=== PATIENT | male | born 1960 | race Caucasian/White ===

== ENCOUNTER → 2017-03-27 | Outpatient (CLI) | payer OTHER ==
--- NOTE | 2017-03-28 11:15 | REP ---
PET/CT: HISTORY: Solitary pulmonary nodule. COMPARISONS: No comparison images are available. Report of a prior [facility] chest CT study dated March 21, 2017 shows a 10 mm right middle lobe pulmonary nodule. TECHNIQUE: 52 minutes following the intravenous injection of a 9.2 mCi dose of F-18 FDG, three-dimensional PET scintigraphy is acquired from the skull base to the proximal thighs. Triplanar noncontrast CT scanning is acquired through the same anatomic range for attenuation correction, and image registration with scan parameters optimized to minimize radiation exposure to the patient. PET scintigraphy and CT datasets were fused and displayed on a workstation with multiplanar and projection display capability. PET/CT FINDINGS: There is no discernible FDG accumulation in the right middle lobe nodule. Maximum standard uptake value is 1.07. This nodule is not hypermetabolic. No other abnormal hypermetabolic uptake is seen in the chest. Head and neck soft tissues are unremarkable. In the abdomen and pelvis, normal hepatic, splenic, gastrointestinal, and genitourinary FDG accumulation is seen. No other abnormal hypermetabolic uptake is appreciated. IMPRESSION: Negative PET scintigraphy. 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 Signed by Segun Farfan MD 03/28/2017 11:25 A
== END ==
LOC: M PLARAD 10:21
PROVIDERS: ATTEND Family Medicine
DX: R91.1 Solitary pulmonary nodule (principal); F17.210 Nicotine dependence, cigarettes, uncomplicated
CPT/HCPCS: 78815; A9552

== ENCOUNTER → 2018-11-10 | Outpatient (REF) | payer OTHER ==
[2018-11-10 19:10] LABS: FERRITIN 27 NG/ML (26-388); IRON (FE) 71 UG/DL (65-175); PERCENT SATURATION 20.5 % (19.7-50.0); TOTAL IRON BINDING CAPACITY 347 UG/DL (250-450)
[2018-11-10 19:21] LABS: VITAMIN B12 LEVEL 1338 PG/ML
[2018-11-10 19:37] LABS: FOLATE > 24.0 NG/ML
== END ==
LOC: M LAB REF 17:12
PROVIDERS: ATTEND Internal Medicine Nephrology
DX: D64.9 Anemia, unspecified (principal)

== ENCOUNTER → 2019-02-10 | Outpatient (REF) | payer OTHER ==
[2019-02-10 19:23] LABS: TOTAL PROTEIN 7.4 GM/DL (6.4-8.2)
[2019-02-10 19:59] LABS: URINE TOTAL PROTEIN 45.5 MG/DL (0-12)
[2019-02-12 12:40] LABS: ALBUMIN 4.32 GM/DL (3.29-5.55); ALBUMIN % 58.4 % (55.8-66.1); ALPHA-1-GLOBULIN % 3.4 % (2.9-4.9); ALPHA-1-GLOBULINS 0.25 GM/DL (0.17-0.41); ALPHA-2-GLOBULINS 0.92 GM/DL (0.42-0.99); ALPHA-2-GLOBULINS % 12.4 % (7.1-11.8); BETA-1-GLOBULINS 0.41 GM/DL (0.28-0.60); BETA-1-GLOBULINS % 5.6 % (4.7-7.2); BETA-2-GLOBULINS 0.41 GM/DL (0.19-0.55); BETA-2-GLOBULINS % 5.6 % (3.2-6.5); GAMMA GLOBULIN % 14.6 % (11.1-18.8); GAMMA GLOBULINS 1.08 GM/DL (0.65-1.58)
[2019-02-12 12:48] LABS: UPEP INTERPRETATION NO M-SPIKE NOTED; URINE VOLUME RANDOM ML
[2019-02-14 00:06] LABS: ANCA-ATYPICAL <1:20 titer (Neg:<1:20); ANTINUCLEAR ANTIBODIES DIRECT Negative (Negative); CYTOPLASMIC NEUTROP AB ANCA-C <1:20 titer (Neg:<1:20); FREE KAPPA LIGHT CHAINS SERUM 45.1 mg/L (3.3-19.4); FREE LAMBDA LIGHT CHAINS SERUM 22.4 mg/L (5.7-26.3); KAPPA/LAMBDA RATIO SERUM 2.01 (0.26-1.65); PERINUCLEAR AB ANCA-P <1:20 titer (Neg:<1:20)
== END ==
LOC: M LAB REF 17:15
PROVIDERS: ATTEND Internal Medicine Nephrology
DX: R80.9 Proteinuria, unspecified (principal)

== ENCOUNTER → 2019-06-12 | Outpatient (CLI) | payer OTHER ==
--- NOTE | 2019-06-12 07:54 | REPVR ---
PROCEDURE INFORMATION: Exam: CT Maxillofacial Without Contrast, Sinus Exam date and time: 06/12/2019 7:41 AM Age: 59 years old Clinical indication: Sinusitis; Type not specified; Additional info: Epistaxis TECHNIQUE: Imaging protocol: CT Maxillofacial without contrast. Focus on the sinuses. Radiation optimization: All CT scans at this facility use at least one of these dose optimization techniques: automated exposure control; mA and/or kV adjustment per patient size (includes targeted exams where dose is matched to clinical indication); or iterative reconstruction. COMPARISON: No relevant prior studies available. FINDINGS: Frontal sinuses: Mild mucosal thickening of the right sphenoid sinus and bilateral frontal sinuses. Ethmoid air cells: See Maxillary Sinuses Finding. Sphenoid sinuses: Normal. No air-fluid levels. Maxillary sinuses: Near complete opacification of bilateral maxillary sinuses. Moderate opacification of the ethmoidal air cells, right greater than left. Orbits: Orbits are normal. Globes are unremarkable. Nasal cavity/Septum: Unremarkable. Soft tissues: Unremarkable. Bones/joints: Unremarkable. IMPRESSION: Mild opacification of the visualized sinuses representing sinus disease. Electronically signed by: Lashon Chu On 06/12/2019 07:54:24 AM
== END ==
LOC: M RAD 07:24
PROVIDERS: ATTEND Physician Assistant Medical
DX: R04.0 Epistaxis (principal)

== ENCOUNTER → 2019-10-26 | Outpatient (CLI) | payer OTHER ==
[~2019-10-26] MED LIST: ATOR80TA59 PO; BUPR150T3 PO; BYDU1INJ SC; CLOP75TA2 PO; INSUHUMDS SC; LANTINJ4 SC; LISI-538 PO; NICOTINE; REME15TA2 PO
== END ==
LOC: M LABSMTC 09:42
PROVIDERS: ATTEND Anesthesiology
DX: Z03.818 Encounter for observation for suspected exposure to other biological agents ruled out (principal); Z11.59 Encounter for screening for other viral diseases
CPT/HCPCS: C9803; U0003

== ENCOUNTER → 2019-10-29 | Day surgery (SDC) | payer OTHER ==
[~2019-10-29] VITALS: Ht 180.3 cm; Wt 104.3 kg
[~2019-10-29] MED LIST changes: +BACITRACIN OINTMENT 30GM TUBE As Ordered ONE; +EPINEPHrine 1MG/ML INJ 30ML MD-VIAL As Ordered ONE; +LIDOCAINE 1% MDV 20ML VIAL SQ PRN; +LIDOCAINE 2% 100MG/5ML SDV (FOR ANES.) As Ordered ONE; +LR 1,000 ML IV ONE; +METHYLENE BLUE 0.5% (5MG/ML) 10 ML AMP (PROVAYBLUE) As Ordered ONE; +MIDAZOLAM INJ 2MG/2ML VIAL (J2250 PER 1MG) As Ordered ONE; +ONDANSETRON 4MG/2ML VIAL As Ordered ONE; +SILVER NITRATE APPLICATOR As Ordered ONE; +dexameTHASONE 4 MG/ML 1ML VIAL (J1100 PER 1MG) As Ordered ONE; +dexameTHASONE 4 MG/ML 1ML VIAL (J1100 PER 1MG) IV ONE; +fentaNYL 100 MCG/2 ML INJECTION (J3010) As Ordered ONE; +propofoL 200 MG/20 ML VIAL As Ordered ONE
[2019-10-29 06:32] VITALS: BP 144/77
== END | disposition home or self-care (01) ==
LOC: M SDC 06:11
PROVIDERS: ATTEND Otolaryngology
DX: R04.0 Epistaxis (principal); Z53.09 Procedure and treatment not carried out because of other contraindication; Z79.02 Long term (current) use of antithrombotics/antiplatelets
CPT/HCPCS: J2250; J3010

== ENCOUNTER → 2020-02-26 | Outpatient (CLI) | payer OTHER ==
[~2020-02-26] MED LIST changes: -BACITRACIN OINTMENT 30GM TUBE As Ordered ONE; -EPINEPHrine 1MG/ML INJ 30ML MD-VIAL As Ordered ONE; -LIDOCAINE 1% MDV 20ML VIAL SQ PRN; -LIDOCAINE 2% 100MG/5ML SDV (FOR ANES.) As Ordered ONE; -LR 1,000 ML IV ONE; -METHYLENE BLUE 0.5% (5MG/ML) 10 ML AMP (PROVAYBLUE) As Ordered ONE; -MIDAZOLAM INJ 2MG/2ML VIAL (J2250 PER 1MG) As Ordered ONE; +MULT-40 PO; -ONDANSETRON 4MG/2ML VIAL As Ordered ONE; -SILVER NITRATE APPLICATOR As Ordered ONE; -dexameTHASONE 4 MG/ML 1ML VIAL (J1100 PER 1MG) As Ordered ONE; -dexameTHASONE 4 MG/ML 1ML VIAL (J1100 PER 1MG) IV ONE; -fentaNYL 100 MCG/2 ML INJECTION (J3010) As Ordered ONE; -propofoL 200 MG/20 ML VIAL As Ordered ONE
== END ==
LOC: M LABSMTC 12:09
PROVIDERS: ATTEND Anesthesiology
DX: Z01.812 Encounter for preprocedural laboratory examination (principal); Z20.828 Contact with and (suspected) exposure to other viral communicable diseases
CPT/HCPCS: C9803; U0003

== ENCOUNTER 2020-03-02 11:53 | Day surgery (SDC) | payer OTHER ==
[~2020-03-02] VITALS: Ht 180.3 cm; Wt 106.3 kg
[~2020-03-02 11:53] MED LIST changes: +LR 1,000 ML IV ONE
[2020-03-02] MEDS ORDERED: SUGAMMADEX SODIUM 500 MG/5 ML VIAL (BRIDION) As Ordered ONE (13:47)
[2020-03-02] MEDS ORDERED: fentaNYL 100 MCG/2 ML INJECTION (J3010) As Ordered ONE ×2 (13:47→17:14)
[2020-03-02] MEDS ORDERED: MIDAZOLAM INJ 2MG/2ML VIAL (J2250 PER 1MG) As Ordered ONE (13:47)
[2020-03-02] MEDS ORDERED: ROCURONIUM BROMIDE 50 MG/5 ML VIAL As Ordered ONE (13:47)
[2020-03-02] MEDS ORDERED: dexameTHASONE 4 MG/ML 1ML VIAL (J1100 PER 1MG) As Ordered ONE (13:47)
[2020-03-02] MEDS ORDERED: METOCLOPRAMIDE INJ 10MG/2ML VIAL (J2765 PER 1) As Ordered ONE (13:47)
[2020-03-02] MEDS ORDERED: propofoL 200 MG/20 ML VIAL As Ordered ONE (13:47)
[2020-03-02] MEDS ORDERED: ONDANSETRON 4MG/2ML VIAL As Ordered ONE (13:47)
[2020-03-02] MEDS ORDERED: LIDOCAINE 2% 100MG/5ML SDV (FOR ANES.) As Ordered ONE (13:47)
[2020-03-02] MEDS: BACITRACIN OINTMENT 30GM TUBE As Ordered ONE ×2 (14:36→16:51)
[2020-03-02] MEDS ORDERED: EPINEPHrine 1MG/ML INJ 30ML MD-VIAL As Ordered ONE ×2 (15:03→16:17)
[2020-03-02] MEDS ORDERED: SILVER NITRATE APPLICATOR As Ordered ONE (15:35)
[2020-03-02] MEDS ORDERED: LIDOCAINE W/EPINEPHRINE 1% 20ML VIAL As Ordered ONE (15:39)
[2020-03-02] MEDS ORDERED: oxyCODONE 5MG TAB As Ordered ONE (17:14)
[2020-03-02] MEDS: oxyCODONE 5MG TAB PO PRN ×2 (17:25→18:14)
[2020-03-02] MEDS ORDERED: ONDANSETRON 4MG/2ML VIAL IV PRN (17:30)
[2020-03-02] MEDS ORDERED: fentaNYL 100 MCG/2 ML INJECTION (J3010) IV PRN (17:30)
[2020-03-02] MEDS ORDERED: LR 1,000 ML IV SCH ×2 (17:30)
[2020-03-02] MEDS ORDERED: hydrALAZINE 20MG/ML 1ML VIAL (J0360 PER 20MG) As Ordered ONE (17:36)
[2020-03-02] MEDS: hydrALAZINE 20MG/ML 1ML VIAL (J0360 PER 20MG) IV SCH ×4 (17:40→17:55)
[2020-03-02 18:13] VITALS: BP 182/93
[2020-03-02] MEDS ORDERED: lisinopriL 10 MG TAB PO ONE (18:15)
[2020-03-02 18:50] VITALS: BP 177/81
--- NOTE | 2020-05-03 14:20 | RO ---
OPERATIVE NOTE DATE OF OPERATION: 03/02/2020 PREOPERATIVE DIAGNOSIS: Recurrent right epistaxis, nasal polyposis. POSTOPERATIVE DIAGNOSIS: Recurrent right epistaxis, nasal polyposis. PROCEDURE: Nasal endoscopy, control of right epistaxis and biopsy of the right nasal cavity. SURGEON: Saturnino Dan MD SECRETARY OF POLICE: ANESTHESIA: General. CLINICAL PREAMBLE: This 60-year-old man presented to the office with history of recurrent right epistaxis. The right nasal cavity has received multiple cauterizations in the office with no long-term resolution. Management options including surgery risks have been discussed with the patient. He understood and consented to the procedure. DESCRIPTION OF PROCEDURE: Patient was identified in preop holding and brought to the operating room in stable condition. He was positioned on the operating table, the patient received general anesthesia followed by orotracheal intubation without incident. Patient was prepped and draped in the usual fashion for the procedure. Both sides of the nasal cavity were packed using pledgets soaked in a vasoconstrictor. After a waiting period, the pledgets were removed. A nasal endoscope was used to inspect both sides of the nasal cavity. Deviation of the right nasal septum was visualized. The bleeding site was noted on the right mid and anterior nasal septum. This was then cauterized under direct visualization. The sphenopalatine fossa was inspected in both the right and left side of the nasal cavity. There was no evidence of mucosal mass lesion or ulceration. Polypoid tissue was noted to be emanating from the right ostiomeatal complex area. Biopsies were obtained to be sent for permanent section to rule out neoplastic process. No active bleeding was noted in the right ostiomeatal complex area. At this time, the nasal portal was applied to the right nasal cavity to achieve complete hemostasis. At the end of the procedure, sponge and instrument counts were correct. No complication was encountered. Estimated blood loss was less than 10 mL. General anesthesia was reversed, and the patient was extubated and brought to the recovery room in stable condition.
== END 2020-03-02 18:50 | disposition home or self-care (01) ==
LOC: M SDC 11:53
PROVIDERS: ATTEND Otolaryngology
DX: R04.0 Epistaxis (principal); I10 Essential (primary) hypertension; E10.9 Type 1 diabetes mellitus without complications; Z79.4 Long term (current) use of insulin; Z79.899 Other long term (current) drug therapy; Z88.0 Allergy status to penicillin; Z91.013 Allergy to seafood
CPT/HCPCS: 31238; 88305; J0360; J1100; J2250; J2405; J2765; J3010

== ENCOUNTER → 2020-04-18 | Outpatient (REF) | payer OTHER ==
[~2020-04-18] MED LIST changes: -LR 1,000 ML IV ONE
[2020-04-18 18:24] LABS: PERCENT SATURATION 21.6 % (19.7-50.0)
[2020-04-18 18:30] LABS: FOLATE 16.5 NG/ML
== END ==
LOC: M LAB REF 17:14
PROVIDERS: ATTEND Internal Medicine Nephrology
DX: D50.9 Iron deficiency anemia, unspecified (principal)

== ENCOUNTER → 2020-05-23 | Outpatient (CLI) | payer OTHER ==
[~2020-05-23] MED LIST changes: -BUPR150T3 PO; +BUPR150T4 PO
--- NOTE | 2020-05-23 16:15 | REPVR ---
PROCEDURE INFORMATION: Exam: CT Maxillofacial Without Contrast, Sinus Exam date and time: 05/23/2020 4:04 PM Age: 60 years old Clinical indication: Condition or disease; Other: Nasal polyposis; Additional info: Nasal polyposis, with brain lab TECHNIQUE: Imaging protocol: CT Maxillofacial without contrast. Focus on the sinuses. Radiation optimization: All CT scans at this facility use at least one of these dose optimization techniques: automated exposure control; mA and/or kV adjustment per patient size (includes targeted exams where dose is matched to clinical indication); or iterative reconstruction. COMPARISON: CT Maxilofacial w/out contrast 06/12/2019 7:49 AM FINDINGS: Frontal sinuses: Mild mucosal thickening inferior right frontal sinus, with probable 9 mm cyst/polyp. Patent left frontal recess, mucosal occlusion of the right frontal recess. Ethmoid air cells: Extensive right anterior ethmoid air cell mucosal thickening and partial air cell opacification. Sphenoid sinuses: Minimal bilateral anterior sphenoid sinus mucosal thickening, patent bilateral sphenoid ostia. Maxillary sinuses: Mild inferior and superomedial right maxillary sinus mucosal thickening. Minimal inferior-anterior left maxillary sinus mucosal thickening. Mucosal narrowing left maxillary ostiomeatal complex. Patent right maxillary sinus ostiomeatal complex. Nasal cavity/Septum: Unremarkable. Orbital cavity: Orbits are normal. Globes are unremarkable. Bones/joints: No destructive bony process identified. Soft tissues: Unremarkable. IMPRESSION: Improved bilateral maxillary sinus mucosal disease, stable bilateral sphenoid sinus mucosal disease, increased right anterior ethmoid disease, interval right frontal sinus mucosal disease. Electronically signed by: Tiago Giron On 05/23/2020 16:15:44 PM
== END ==
LOC: M RAD 15:55
PROVIDERS: ATTEND Otolaryngology
DX: J33.9 Nasal polyp, unspecified (principal)

== ENCOUNTER → 2020-09-14 | Outpatient (REF) | payer OTHER ==
[~2020-09-14] MED LIST changes: +BUPR150T12 PO; -BUPR150T4 PO; -LISI-538 PO; +LISI20TA33 PO
[2020-09-14 18:38] LABS: PERCENT SATURATION 16.8 % (19.7-50.0)
== END ==
LOC: M LAB REF 17:04
PROVIDERS: ATTEND Internal Medicine Nephrology
DX: D50.9 Iron deficiency anemia, unspecified (principal)

== ENCOUNTER 2020-10-27 07:20 | Outpatient (CLI) | payer OTHER ==
[~2020-10-27] VITALS: Ht 180.3 cm; Wt 107.2 kg
[~2020-10-27 07:20] MED LIST changes: +ALBUTEROL SULFATE 2.5 MG/0.5 ML INH NEB SOLN INH PRN; +EPINEPHrine INJ 1 MG/ML 1ML AMP IM PRN; +diphenhydrAMINE 50MG/ML VIAL (J1200) IV PRN; +methylPREDNISolone 125MG 2ML VIAL IV PRN
[2020-10-27 07:30] VITALS: BP 151/75
[2020-10-27] MEDS ORDERED: diphenhydrAMINE 50MG/ML VIAL (J1200) IV ONE (07:30)
[2020-10-27] MEDS ORDERED: NS 1,000 ML IV SCH (07:30)
[2020-10-27] MEDS ORDERED: IRON SUCROSE 200 MG in NS 100 ML OVER 1 HR IV ONE (07:30)
[2020-10-27] MEDS ORDERED: IRON SUCROSE 25 MG in NS 25 ML IV ONE (07:30)
[2020-10-27] MEDS ORDERED: IRON1TAB2 PO (08:00)
[2020-10-27] MEDS ORDERED: PLAV1TAB2 PO (08:01)
[2020-10-27 09:14] VITALS: BP 151/72
[2020-10-27 09:47] VITALS: BP 141/82
[2020-10-27 11:00] VITALS: BP 133/84
== END 2020-10-27 11:00 | disposition home or self-care (01) ==
LOC: M INFU 07:20
PROVIDERS: ATTEND Internal Medicine Nephrology
DX: D50.9 Iron deficiency anemia, unspecified (principal)
CPT/HCPCS: 96365; 96375; J1200; J1756

== ENCOUNTER 2020-11-03 07:24 | Outpatient (CLI) | payer OTHER ==
[~2020-11-03] VITALS: Ht 177.8 cm; Wt 107.2 kg
[~2020-11-03 07:24] MED LIST changes: +IRON1TAB2 PO; +PLAV1TAB2 PO
[2020-11-03] MEDS ORDERED: NS 1,000 ML IV SCH (07:30)
[2020-11-03] MEDS ORDERED: IRON SUCROSE 200 MG in NS 100 ML OVER 1 HR IV ONE (07:30)
[2020-11-03] MEDS ORDERED: diphenhydrAMINE 50MG/ML VIAL (J1200) IV ONE (07:30)
[2020-11-03 07:45] VITALS: BP 146/69
[2020-11-03 09:50] VITALS: BP 139/67
== END 2020-11-03 09:50 | disposition home or self-care (01) ==
LOC: M INFU 07:24
PROVIDERS: ATTEND Internal Medicine Nephrology
DX: D50.9 Iron deficiency anemia, unspecified (principal)
CPT/HCPCS: 96365; 96375; J1200; J1756

== ENCOUNTER 2020-11-10 12:32 | Outpatient (CLI) | payer OTHER ==
[~2020-11-10] VITALS: Ht 177.8 cm; Wt 107.2 kg
[~2020-11-10 12:32] MED LIST changes: +IRON SUCROSE 200 MG in NS 100 ML OVER 1 HR IV ONE; +IRON SUCROSE 25 MG in NS 25 ML IV ONE; +NS 1,000 ML IV SCH; +diphenhydrAMINE 50MG/ML VIAL (J1200) IV ONE
[2020-11-10 12:43] VITALS: BP 126/59
== END 2020-11-10 13:50 | disposition home or self-care (01) ==
LOC: M INFU 12:32
PROVIDERS: ATTEND Internal Medicine Nephrology
DX: D50.9 Iron deficiency anemia, unspecified (principal)
CPT/HCPCS: 96365; J1756

== ENCOUNTER → 2021-07-31 | Outpatient (REF) | payer OTHER ==
[~2021-07-31] MED LIST changes: -ALBUTEROL SULFATE 2.5 MG/0.5 ML INH NEB SOLN INH PRN; -EPINEPHrine INJ 1 MG/ML 1ML AMP IM PRN; -IRON SUCROSE 200 MG in NS 100 ML OVER 1 HR IV ONE; -IRON SUCROSE 25 MG in NS 25 ML IV ONE; -NS 1,000 ML IV SCH; -diphenhydrAMINE 50MG/ML VIAL (J1200) IV ONE; -diphenhydrAMINE 50MG/ML VIAL (J1200) IV PRN; -methylPREDNISolone 125MG 2ML VIAL IV PRN
[2021-07-31 17:52] LABS: PERCENT SATURATION 20.5 % (19.7-50.0)
== END ==
LOC: M LAB REF 17:02
PROVIDERS: ATTEND Internal Medicine Nephrology
DX: D50.9 Iron deficiency anemia, unspecified (principal)

== ENCOUNTER 2021-08-28 10:21 | Outpatient (CLI) | payer OTHER ==
[~2021-08-28] VITALS: Ht 180.3 cm; Wt 110.3 kg
[~2021-08-28 10:21] MED LIST changes: +ALBUTEROL SULFATE 2.5 MG/0.5 ML INH NEB SOLN INH PRN; +EPINEPHrine INJ 1 MG/ML 1ML AMP IM PRN; +diphenhydrAMINE 50MG/ML VIAL (J1200) IV PRN; +methylPREDNISolone 125MG 2ML VIAL IV PRN
[2021-08-28 10:25] VITALS: BP 172/88
[2021-08-28] MEDS ORDERED: IRON SUCROSE 500 MG in NS 250 ML OVER 4 HRS IV ONE (10:30)
[2021-08-28] MEDS ORDERED: NS 1,000 ML IV SCH (10:30)
[2021-08-28] MEDS ORDERED: IRON SUCROSE 25 MG in NS 25 ML IV ONE (10:30)
[2021-08-28] MEDS ORDERED: LISI10TA22 PO (11:34)
[2021-08-28] MEDS ORDERED: ASPI81CH33 PO (11:34)
[2021-08-28] MEDS ORDERED: METO1TAB7 PO (11:34)
[2021-08-28] MEDS ORDERED: FERR324T21 PO (11:34)
[2021-08-28] MEDS ORDERED: EZET10TA21 PO (11:34)
[2021-08-28] MEDS ORDERED: BASA100I SC (11:37)
[2021-08-28] MEDS ORDERED: INSUHUMDS SC (11:37)
[2021-08-28 11:50] VITALS: BP 132/66
[2021-08-28 12:50] VITALS: BP 148/88
[2021-08-28 14:50] VITALS: BP 138/78
[2021-08-28 15:30] VITALS: BP 148/88
== END 2021-08-28 15:55 | disposition home or self-care (01) ==
LOC: M INFU 10:21
PROVIDERS: ATTEND Internal Medicine Nephrology
DX: D50.9 Iron deficiency anemia, unspecified (principal)
CPT/HCPCS: 96365; 96366; J1756

== ENCOUNTER → 2022-01-31 | Outpatient (REF) | payer OTHER ==
[~2022-01-31] MED LIST changes: -ALBUTEROL SULFATE 2.5 MG/0.5 ML INH NEB SOLN INH PRN; +ASPI81CH33 PO; +BASA100I SC; -EPINEPHrine INJ 1 MG/ML 1ML AMP IM PRN; +EZET10TA21 PO; +FERR324T21 PO; +LISI10TA22 PO; +METO1TAB7 PO; -diphenhydrAMINE 50MG/ML VIAL (J1200) IV PRN; -methylPREDNISolone 125MG 2ML VIAL IV PRN
[2022-02-05 19:31] LABS: CREATININE, URINE 95.2 MG/DL
== END ==
LOC: M LAB REF 17:04
PROVIDERS: ATTEND Internal Medicine Nephrology
DX: N18.31 Chronic kidney disease, stage 3a (principal); E11.22 Type 2 diabetes mellitus with diabetic chronic kidney disease; I12.9 Hypertensive chronic kidney disease with stage 1 through stage 4 chronic kidney disease, or unspecified chronic kidney disease

== ENCOUNTER → 2022-03-20 | Outpatient (CLI) | payer OTHER ==
[~2022-03-20] MED LIST changes: +CLOP75TA99 PO; -PLAV1TAB2 PO
== END ==
LOC: M RAD 09:03
PROVIDERS: ATTEND Physician Assistant Medical
DX: I73.9 Peripheral vascular disease, unspecified (principal); Z87.891 Personal history of nicotine dependence

== ENCOUNTER → 2022-03-20 | Outpatient (CLI) | payer OTHER | LOC: M RAD 09:04 | PROVIDERS: ATTEND Surgery Vascular Surgery | DX: I70.0 Atherosclerosis of aorta (principal) ==

== ENCOUNTER → 2023-09-18 | Outpatient (REF) | payer OTHER ==
[~2023-09-18] MED LIST changes: +MIRT-84 PO; -REME15TA2 PO
[2023-09-18 19:25] LABS: TOTAL PROTEIN,RANDOM URINE 77.2 MG/DL (0.0-14.0)
[2023-09-18 19:30] LABS: CREATININE,RANDOM URINE 158.7 MG/DL
== END ==
LOC: M LAB REF 17:03
PROVIDERS: ATTEND Internal Medicine Nephrology
DX: E11.22 Type 2 diabetes mellitus with diabetic chronic kidney disease (principal)